=== PATIENT | male | born 1935 | race Caucasian/White ===

== ENCOUNTER 2018-11-07 06:48 | Day surgery (SDC) | payer MEDICARE, OTHER ==
[2018-11-04 11:31] LABS: BASOPHILS 0.2 % (0-2); EOSINOPHILS 0.6 % (0-7); HEMATOCRIT 32.6 % (42.0-54.0); HEMOGLOBIN 10.7 g/dL (13.5-17.5); IMMATURE GRANULOCYTES 0.7 % (0-5); LYMPHOCYTES 10.2 % (15-50); MCH 30.8 pg (26.0-34.0); MCHC 32.8 g/dL (31.0-37.0); MCV 93.9 fL (80.0-100.0); MEAN PLATELET VOLUME 8.9 fL (7.4-10.4); MONOCYTES 10.1 % (2-11); NEUTROPHILS 78.2 % (40-80); PLATELET COUNT 274 10x3/uL (130-400); RBC 3.47 10x6/uL (4.20-6.10); RDW 13.2 % (11.5-14.5); WBC 9.7 10x3/uL (4.8-10.8)
[2018-11-04 11:50] LABS: ANION GAP 10.6 mmol/L (8-16); CALCIUM 8.8 mg/dL (8.5-10.1); CARBON DIOXIDE 29.1 mmol/L (21.0-32.0); CREATININE - SERUM 1.2 mg/dL (0.6-1.3); POTASSIUM - SERUM 4.7 mmol/L (3.5-5.1)
[2018-11-04 12:08] LABS: INR 1.19 (0.85-1.17); PROTIME 14.6 SECONDS (11.6-15.0)
[2018-11-04 12:09] LABS: APTT 31.2 SECONDS (22.8-39.4)
[~2018-11-07] VITALS: Ht 172.7 cm; Wt 81.6 kg
[~2018-11-07 06:48] MED LIST: ACETAMINOPHEN325 MG PO; COZAAR100 MG PO; FLOMAX0.4 MG PO; FLUTICASONE PRO16 GM NASAL; FOLATE0.4 MG PO; GLUCOSAMINE HC500 MG PO; LOPRESSOR25 MG PO; LOVENOX INJ100 MG/ML SC; OMEPRAZOLE20 M1 PO; PROSCAR5 MG PO; SAW PALMETTO450 MG PO; SINGULAIR10 MG PO; TRAZODONE HCL150 MG PO; VITAMIN B-12100 MCG PO; VITAMIN D31000 UNIT PO; XALATAN 0.0052.5 ML EACH EYE
[2018-11-07 08:26] VITALS: BP 139/76; BMI 27.4
--- NOTE | 2018-11-07 09:51 | NUR ---
PATIENT ARRIVED IN THE OR WITH FOLY CATHITER IN PLACE
--- NOTE | 2018-11-07 09:58 | NUR ---
PATIENT PRESERNTED IN THE OR WITH BILATERAL ABDOMINAL/INGGUINAL CONTUSIONS
[2018-11-07] MEDS ORDERED: HYDROCODON-ACE1 EAC7 PO (10:53)
--- NOTE | 2018-11-07 14:05 | NUR ---
1400 PT ASSISTED WITH GETTING DRESSED AND OFF O2 .O2 SAT LOW 70S. PT STATED HE CAN GO HOME BUT DOESNT HAVE PORTABLE 02. WEARS O2 AT NIGHT. 2LITERS. AT BEDSIDE. PT HAS A MAYER CATH TO LEG BAG. 1410 DR HUANG CALLED AND PT ORDERED A BREATHING TREATMENT AND CXR
--- NOTE | 2018-11-07 15:58 | NUR ---
1515 PT OFF OF O2 AND SATS 92% DR KATZ NOTIFIED. CXR REPORT GIVEN AND COPIED TO . ENCOURAGED PT TO FOLLOW UP WITH PRIMARY
[2018-11-11 11:10] VITALS: Ht 172.7 cm; Wt 81.6 kg
== END 2018-11-07 15:45 | disposition home or self-care (01) ==
LOC: D.OPS 06:48 → D.PAN 09:00 → D.OPS 15:45
PROVIDERS: Anesthesiology; ATTEND Surgery
DX: K40.30 Unilateral inguinal hernia, with obstruction, without gangrene, not specified as recurrent (principal); Z01.812 Encounter for preprocedural laboratory examination